=== PATIENT | male | born 1995 | race Caucasian/White ===

== ENCOUNTER 2020-03-25 02:48 | Emergency (ER) | payer SELFPAY ==
[~2020-03-25] VITALS: Ht 167.6 cm; Wt 59.0 kg
[2020-03-25 02:51] VITALS: BP 130/80
== END 2020-03-25 05:00 | disposition home or self-care (01) ==
LOC: ER 03:23
DX: S90.822A Blister (nonthermal), left foot, initial encounter (principal); S90.821A Blister (nonthermal), right foot, initial encounter; X58.XXXA Exposure to other specified factors, initial encounter; Y93.89 Activity, other specified; Y92.89 Other specified places as the place of occurrence of the external cause; Y99.8 Other external cause status; F15.10 Other stimulant abuse, uncomplicated; F11.10 Opioid abuse, uncomplicated; F32.9 Major depressive disorder, single episode, unspecified
CPT/HCPCS: 99282